=== PATIENT | female | born 1980 | race Caucasian/White ===

== ENCOUNTER 2021-01-18 15:45 | Emergency (ER) | payer OTHER, SELFPAY ==
[2021-01-18 16:09] VITALS: BP 148/80; PULSE 74; RESP 18; TEMP 36.8; O2SAT 98; BMI 26.4
--- NOTE | 2021-01-18 18:05 | ED_ITS ---
HPI - Skin/Abscess/Foreign Bdy General Chief complaint: Skin/Abscess/Foreign Body Stated complaint: ? infection metal in fingers Time Seen by Provider: 01/18/21 17:57 Source: patient Mode of arrival: ambulatory Limitations: no limitations History of Present Illness complaint: foreign body Onset (ago): day(s) (a few days worse today ) Location: L hand and R hand Quality: foreign body sensation Pain Consistency: constant Relieving factors: none Exacerbating factors: none Context: other (smoking marijuana from a pipe ) Associated symptoms: denies other symptoms Treatments prior to arrival: other (attempted to remove FB and was seen at [facility] and had a negative xray refusing xray ) Related Data Previous Rx's Medication Instructions Recorded cephalexin 500 mg capsule 500 mg PO Q6H 10 Days #40 cap 01/18/21 Allergies Allergy/AdvReac Type Severity Reaction Status Date / Time No Known Allergies Allergy Verified 01/18/21 16:09 [No Known Allergies*] Review of Systems Review of Systems: Constitutional : No Fever, No Chills, Cardiovascular : No Chest Pain, No SOB Respiratory : No Dyspnea Gastrointestinal : No abdominal pain Musculoskeletal : No Joint Swelling Skin : positive foreign body sensation, No skin laceration, No rash, No surrounding erythema Neuro : No Weakness, No Numbness/tingling Psych : No SI/HI/thoughts of self injury Yes all other systems are reviewed and are negative [facility] Past Medical History Attestation statement: The following information was validated with the patient. Medical History Multiple sclerosis Social History Social History Advance Directives: No Advance Directives Information Provided: Yes Patient : No Physical Exam Vital Signs: Vital Signs: Last Vital Signs Temp 98.3 F 01/18/21 16:09 Pulse 74 01/18/21 16:09 Resp 18 01/18/21 16:09 BP 148/80 H 01/18/21 16:09 Pulse Ox 98 01/18/21 16:09 Body Mass Index 26.4 vital signs have been reviewed as normal and appeared to be correct. Blood pressure hypertensive 148/80 Heart rate normal. Respiration rate normal. Temperature normal. Oxygen saturation normal. Appearance: Alert. Oriented X3. No acute distress. Head: Normal external exam. Normocephalic. Atraumatic. Eyes: PERRLA. EOMI. Conjunctiva and sclera normal. Eyelids normal. ENT: Pharynx normal. Uvula midline. Moist mucous membranes. Neck: Normal inspection. Neck supple. FROM. CVS: Normal heart rate and rhythm. Respiratory: No respiratory distress. Painless inspiration. Skin: Skin warm and dry. Normal skin color. Normal skin turgor. No rashes/lesions/lacerations noted. Extremities: To all fingernails patient has dry skin it appears that she is picking I do not notice any foreign bodies no purulent drainage. The rest of the Extremities exhibit normal range of motion and nontender. Neuro: Oriented X 3. No motor deficit. No sensory deficit. Reflexes normal. Normal steady gait. No focal neuro deficits noted. Vascular: + radial pulses/+ 2 distal pedal pulses/+2 dorsalis pedis b/l. Normal cap refill. No cyanosis noted to upper extremity nails and lower extremity toes nails. Course Course Course Narrative: 40-year-old female presenting to the ED with thoughts of foreign body of a pipe that she was smoking marijuana from [facility] and she believes that she has pieces of the pipe in her fingernail/finger she reports that she was seen at [place] prior to arrival and had negative x-rays therefore she is refusing repeat x-rays. On my exam it appears that the patient just picking her skin no foreign bodies are noted. Therefore will DC home with antibiotics and symptomatic treatment instructions return if any new or worsening symptoms and follow-up with primary care provider. Patient understands agrees with this plan. MDM - Skin/Abscess/Foreign Bdy Medical Records Attestation: I reviewed the patient's medical records. Discharge Plan Discharge Clinical Impression: Cellulitis of fingernail Patient Disposition: Home, Self-Care Instructions: Cellulitis (ED) Prescriptions: New cephalexin 500 mg capsule 500 mg PO Q6H 10 Days Qty: 40 RF: 0 Referrals: Florencio Gordillo MD [Primary Care Provider] - 2 days Print Language: Somali
== END 2021-01-18 18:38 | disposition home or self-care (01) ==
PROVIDERS: Emergency Provider Emergency Medicine; PCP Internal Medicine
DX: L03.011 Cellulitis of right finger (principal); L03.012 Cellulitis of left finger; F12.90 Cannabis use, unspecified, uncomplicated; Z79.899 Other long term (current) drug therapy
CPT/HCPCS: 99283

== ENCOUNTER 2021-01-27 09:21 | Emergency (ER) | payer OTHER, SELFPAY ==
[2021-01-27 09:34] VITALS: BP 136/80; PULSE 104; RESP 20; TEMP 37.3; O2SAT 96; BMI 24.8
--- NOTE | 2021-01-27 09:57 | ED.EXTPRO ---
HPI - Extremity Problem General Chief complaint: Extremity Problem Stated complaint: states hands & feet infected Time Seen by Provider: 01/27/21 09:47 Source: patient Limitations: no limitations History of Present Illness HPI Narrative: This is a 40-year-old female who complains of pain adjacent to her nails on her hands and feet. She believes that there was wire mesh from a bowl used for smoking marijuana (as an at [employer]) which had disintegrated and was on her floor. The patient states that she walks around her house barefoot and she believes that the wire mesh got underneath her cuticles in her toes of both of her feet as well as in her hands. Patient has been seen by her primary care for this and had x-rays done which did not show anything. The patient was referred to a hand specialist who felt the patient was ?picking? and did not need any procedure. Patient states she is waiting to be referred to another hand specialist. The patient was seen here in the ED on January 18 and was put on antibiotics for possible infection. She states she is not improved. She wants somebody to remove all of these pieces of wire and asked if a hand specialist will come in to do this. She denies any fever. She notes she is going through a separation right now and was recently put on hydroxyzine. She does have history of multiple sclerosis. Related Data Home Medications Medication Instructions Recorded Confirmed bacitracin 500 unit/gram topical 1 appl TOPICAL TID PRN 01/27/21 ointment baclofen 10 mg tablet 20 mg PO TID 01/27/21 [id number]-uycqdeavgbewy-mnmjsqsm 1 tab PO BID 01/27/21 50 mg-325 mg-40 mg tablet duloxetine 30 mg capsule,delayed 3 cap PO DAILY 01/27/21 release fingolimod 0.5 mg capsule (Gilenya) 1 cap PO DAILY 01/27/21 hydrocortisone 2.5 % topical 1 appl TOPICAL TID PRN 01/27/21 ointment hydroxyzine HCl 10 mg tablet 1 cap PO TID PRN 01/27/21 pregabalin 75 mg capsule 75 mg PO BID@0900,1200 01/27/21 pregabalin 75 mg capsule 150 mg PO BEDTIME 01/27/21 Previous Rx's Medication Instructions Recorded cephalexin 500 mg capsule 500 mg PO Q6H 10 Days #40 cap 01/18/21 Allergies Allergy/AdvReac Type Severity Reaction Status Date / Time No Known Allergies Allergy Verified 01/18/21 16:09 [No Known Allergies*] Review of Systems Constitutional: Constitutional: Reports as per HPI Musculoskeletal: Musculoskeletal: Reports as per HPI Integumentary/Breasts: Skin/Breast: Reports as per HPI PMFSH Past Medical History Medical History Multiple sclerosis Social History Social History Alcohol intake: never Patient Tobacco Use Status: Never used Tobacco Use of substances other than those prescribed or required for medical reasons: No Advance Directives: No Patient : No Physical Exam Vital Signs: Vital Signs: Last Vital Signs Temp 98.3 F 01/27/21 10:06 Pulse 80 01/27/21 10:06 Resp 18 01/27/21 10:06 BP 145/91 H 01/27/21 10:06 Pulse Ox 100 01/27/21 10:06 Body Mass Index 24.8 Const: Other: Patient anxious appearing, mildly tremulous, tearful HENMT: Head: Yes normal to inspection Resp: Effort & Inspection: normal respiratory effort Auscultation: clear to auscultation bilaterally Cardio: Rate: regular rate Rhythm: regular rhythm Heart sounds: S1 normal heart sound present and S2 normal heart sound present Skin: Other: Skin adjacent to some of the cuticles on the patient's hands mildly erythematous, appears to be from constant rubbing/inflammation, no evidence of paronychial infection or cellulitis. No erythema extending proximally on the fingers or toes, or on to the hands or feet MDM - Extremity (Nontraumatic) MDM Narrative Medical decision making narrative: Patient very anxious appearing, has been seen both by primary care physician, and specialists, and here in the ED previously for the same problem. Patient with obvious emetic delusions, thinking that wire mesh from marijuana smoking paraphernalia some how has become imbedded in the skin proximal to the nails of all of her fingers and toes. Patient has had a negative x-ray previously. I explained to the patient that wire which show up on x-ray, then she stated that it was not metal, it was wire. Patient has been seen by a hand specialist who thought the patient was ?picking?. Patient does seem to be very preoccupied with her distal fingers and toes and is continually rubbing them. Patient is tearful and anxious and mildly tremulous. No evidence of cellulitis, or paronychial infection evident. Patient has recently been on antibiotics. Discharge Plan Discharge Clinical Impression: Extremity pain, Somatic delusion Patient Disposition: Home, Self-Care Additional Instructions: Soak your hands and feet in warm water for 10 minutes 3 times a day. Uses acetaminophen or ibuprofen for pain. Follow-up with the specialist as referred by her primary care physician. Try to refrain from rubbing at your fingers or toes, as this may be exacerbating your symptoms. Follow up with her primary care physician or a psychiatrist regarding your anxiety and preoccupation with the wires in your fingers and toes Prescriptions: No Action cephalexin 500 mg capsule 500 mg PO Q6H 10 Days Qty: 40 RF: 0 bacitracin 500 unit/gram ointment 1 appl topical TID PRN (Reason: Skin Irritation) RF: 0 vliwsqxtch-barplqywmrrji-skxl 50-325-40 mg tablet 1 tab PO BID RF: 0 baclofen 10 mg tablet 20 mg PO TID RF: 0 hydroxyzine HCl 10 mg tablet 1 cap PO TID PRN (Reason: anxiety) RF: 0 duloxetine 30 mg capsule,delayed release(DR/EC) 3 cap PO DAILY RF: 0 pregabalin 75 mg capsule 150 mg PO BEDTIME RF: 0 pregabalin 75 mg capsule 75 mg PO BID@0900,1200 RF: 0 Gilenya 0.5 mg capsule 1 cap PO DAILY RF: 0 hydrocortisone 2.5 % ointment 1 appl topical TID PRN (Reason: skin irritation) RF: 0 Interventions: ED Discharge Assessment Last Done: 01/27/21 10:10 Discharge Date/Time: 01/27/21 10:11
[2021-01-27 10:06] VITALS: BP 145/91; PULSE 80; RESP 18; TEMP 36.8; O2SAT 100
== END 2021-01-27 10:11 | disposition home or self-care (01) ==
PROVIDERS: Emergency Provider Emergency Medicine; PCP Internal Medicine
DX: M79.642 Pain in left hand (principal); M79.641 Pain in right hand; F22 Delusional disorders; G35 Multiple sclerosis; Z79.899 Other long term (current) drug therapy
CPT/HCPCS: 99283; 99284